=== PATIENT | male | born 1940 | race Caucasian/White ===

== ENCOUNTER 2018-02-18 21:45 | Emergency (ER) | payer MEDICARE, SELFPAY ==
[2018-02-18 21:58] VITALS: BP 139/101; PULSE 70; RESP 16; TEMP 36.1; O2SAT 97; BMI 25.1
--- NOTE | 2018-02-18 22:06 | ED.TRAUMA ---
HPI - Trauma General Chief Complaint: Trauma Stated Complaint: HEAD INJURY S/P FAL Time Seen by Provider: 02/18/18 21:53 Source: patient Mode of arrival: ambulatory Limitations: no limitations History of Present Illness HPI narrative: Patient is a 77-year-old male on Coumadin for cardiac reasons here for evaluation of a fall and head laceration. Patient states that at baseline he has mobility issues due to a ?spinal cord injury ?he states that he was sitting in a chair. He states that he thought that he moved his chair out however the rug that it was sitting on did not move as much as he thought. He states that he fell backwards while sitting in the chair and hit his head on a bench. No loss of consciousness. Was able to ambulate afterwards however his was at bedside states that he was a little more unsteady than normal. No other injuries reported from the event. Related Data Home Medications Medication Instructions Recorded Confirmed finasteride 5 mg PO QDAY #0 12/09/15 gabapentin [Neurontin] 600 mg PO TID #0 12/09/15 pregabalin [Lyrica] 150 mg PO BID #0 12/09/15 warfarin [Coumadin] #0 12/09/15 Allergies Allergy/AdvReac Type Severity Reaction Status Date / Time No Known Drug Allergies Allergy Verified 02/18/18 22:15 Review of Systems Constitutional Denies fever(s) and Denies headache(s) Eyes Denies diplopia and Denies dry eyes ENT Ears, Nose, Mouth, and Throat: Denies headache(s) Cardiovascular Denies dyspnea Respiratory Denies cough and Denies dyspnea Gastrointestinal Gastrointestinal: Denies diarrhea, Denies nausea and Denies vomiting Musculoskeletal Denies back pain, Denies myalgias and Denies arthralgias Integumentary/Breasts Comments: Cut the back of his head Neurologic Denies behavioral changes and Denies headache(s) Comments: No new neurologic symptoms Psychiatric Denies behavioral changes Hematologic/Lymphatic Reports easy bleeding (On Coumadin) [facility] Medical History Atrial fibrillation (Acute) Surgical History No pertinent past surgical history (Acute) Social History Smoking Status: Never smoker Exam Initial Vital Signs Initial Vital Signs: Vital Signs Temperature 97 F L 02/18/18 21:58 Pulse Rate 70 02/18/18 21:58 Respiratory Rate 16 02/18/18 21:58 Blood Pressure 139/101 H 02/18/18 21:58 Pulse Oximetry 97 10 21:58 Const General: cooperative, comfortable, well developed, well groomed and No acute distress Orientation: alert, awake and oriented x3 HENMT Head: other (3 cm laceration to the right posterior parietal/occipital region of the scalp. No active bleeding) Resp Effort & Inspection: normal respiratory effort Back/Spine/Pelvis Cervical Spine: No cervical muscular tenderness, No pain with cervical ROM, No cervical spasm, No cervical spinal tenderness and No step off deformity Skin Trauma: laceration (Right posterior parietal/occipital scalp) Neuro General: alert, awake and oriented x3 Speech: speech normal Extrem General: normal to inspection and capillary refill normal Right upper extremity: normal to inspection Left upper extremity: normal to inspection Right lower extremity: normal to inspection Left lower extremity: normal to inspection Psych Appearance: grossly normal and well kempt Procedures Laceration Repair Laceration 1: Site: scalp Size (cm): 3 Description: linear Depth: simple, single layer Local Anesthetic: lidocaine 1% Amount of anesthesia used (mL): 5 Pre-repair: wound explored and deep structures intact Skin layer closed with: other ([place]) Number of sutures: 7 Course Orders Ordered: ED Orders 02/18/18 21:14 Partial Thromboplastin Time Stat Prothrombin Time INR Stat 02/18/18 22:07 CT head/brain wo con Stat Vital Signs - 8 hr 02/18/18 21:58 02/19/18 00:03 Temperature 97 F L Pulse Rate 70 74 Respiratory Rate 16 14 Blood Pressure 139/101 H 121/84 Pulse Oximetry 97 98 [facility] - Trauma Lab Data Lab Results 02/18/18 Range/Units 21:14 PT 26.4 H (10.1-12.7) SECONDS INR 2.4 H (0.9-1.3) APTT 47 H (26.4-36.2) SECONDS Imaging Data CT scan - head: Radiologist's impression: No acute intracranial process is identified. Mild to moderate age-related changes. [facility] Narrative Medical decision making narrative: Patient cervical spine cleared by nexus criteria. Head CT shows no signs of bleeding. Patient's INR is 2.4. The scalp wound was closed as above. He was given care instructions. No other injuries were found on his exam today. Will hold on further workup. He was given return precautions. Both he and his expressed understanding and agreement with plan. Discharge Plan Departure Patient Disposition: Home Clinical Impression: Laceration of scalp, Fall Discharge Date/Time: 02/19/18 00:03 Interventions: ED Discharge Assessment Last Done: 02/19/18 00:03 Instructions: DI for Laceration Repair -- [place], How to Prevent Falls Activity Restrictions/Additional Instructions: Continue all of your medications as directed. You can shower like normal. You can use soap and water like normal. The maria teresa to need to come out in approximately 7-10 days. Return to the emergency department for any new or worsening symptoms Prescriptions: No Action pregabalin [Lyrica] 150 MG capsule 150 mg PO BID Qty: 0 RF: 0 gabapentin [Neurontin] 300 MG capsule 600 mg PO TID Qty: 0 RF: 0 finasteride 5 MG tablet 5 mg PO QDAY Qty: 0 RF: 0 warfarin [Coumadin] 4 MG tablet Qty: 0 RF: 0
--- NOTE | 2018-02-18 22:07 | DI.CT.S_ITS ---
PROCEDURE: CT HEAD/BRAIN WO CON INDICATIONS: fall on coumadin right sided posterior scalp laceration TECHNIQUE: Noncontrast 4.5 mm thick angled axial sections acquired from the foramen magnum to the vertex, with coronal and sagittal reformats. For radiation dose reduction, the following was used: automated exposure control, adjustment of mA and/or kV according to patient size. COMPARISON: [facility], CT, HEAD WITHOUT CONTRAST, 12/09/2015, 6:18. FINDINGS: Image quality: Excellent. CSF spaces: Basal cisterns are patent. No extra-axial fluid collections. The ventricles are symmetric in size and shape. Brain: No intracranial bleeds or masses. There is cerebral volume loss for age, with resultant ventricular and sulcal prominence. There are periventricular and deep white matter chronic small vessel ischemic changes. There is intracranial internal carotid artery atherosclerosis. Skull and face: Calvarium and visualized facial bones appear intact, without suspicious lesions. Right parietal scalp skin maria teresa and underlying edema. Sinuses: Visualized sinuses and mastoids are clear. IMPRESSION: No acute intracranial process. Chronic age-related changes as above. Dictated by: Richard Echavarria M.D. on 02/19/2018 at 7:14 Approved by: Richard Echavarria M.D. on 02/19/2018 at 7:16
[2018-02-18 22:25] LABS: INR 2.4 (0.9-1.3); Prothrombin Time 26.4 SECONDS (10.1-12.7)
[2018-02-18 22:27] LABS: PTT Partial Thromboplastin Tim 47 SECONDS (26.4-36.2)
[2018-02-19 00:03] VITALS: BP 121/84; PULSE 74; RESP 14; O2SAT 98
== END 2018-02-19 00:03 | disposition home or self-care (01) ==
PROVIDERS: Emergency Provider Emergency Medicine
DX: S01.01XA Laceration without foreign body of scalp, initial encounter (principal); W07.XXXA Fall from chair, initial encounter
CPT/HCPCS: 12002; 36415; 70450; 85610; 85730; 99283; 99284